=== PATIENT | male | born 1960 | race Caucasian/White ===

== ENCOUNTER 2022-12-17 15:44 | Emergency (ER) | payer OTHER, SELFPAY ==
[2022-12-17] VITALS (30 sets, daily range): BP systolic 116–154; BP diastolic 73–137; PULSE 74–99; RESP 16–35; TEMP 36.7; O2SAT 88–96; BMI 23.1
--- NOTE | 2022-12-17 16:06 | CT_ITS ---
EXAM: CT HEAD WITHOUT INTRAVENOUS CONTRAST CLINICAL INDICATION: Head injury TECHNIQUE: Multiple axial images were obtained of the head without intravenous contrast. This CT exam was performed using one or more of the following dose reduction techniques: automated exposure control, adjustment of the mA and/or kV according to patient size, and/or use of iterative reconstruction technique. This report was created using [employer] report generation technology. COMPARISON: None. FINDINGS: BRAIN AND EXTRA-AXIAL SPACES: Unremarkable. No intra- or extra-axial hemorrhage. No evidence of acute infarct. No intracranial mass or mass effect. There is preservation of the ortiz/white matter interface. Posterior fossa structures are unremarkable. Ventricles are appropriate for age. No hydrocephalus. Basal cisterns are patent. BONES/JOINTS: Unremarkable. No discrete lytic or blastic abnormalities. SOFT TISSUES: There is gas in the soft tissues and musculature over the posterior skull base. Calvarium is intact. SINUSES: Unremarkable as visualized. Clear. MASTOID AIR CELLS: Unremarkable. Clear. ORBITS: Visualized globes, extraocular muscles, optic nerves and retrobulbar fat appear unremarkable. CT/Brain/Head without Contrast IMPRESSION: 1. No acute intracranial abnormality. 2. Gas in the soft tissues and musculature posterior to the posterior fossa. Electronically Signed: Edd Carreon MD at 16:49 EST ,
[2022-12-17] MEDS: Morphine 4 MG/ML Syringe IV (16:21)
[2022-12-17] MEDS: 0.9% Normal Saline 1,000 ML 1000 ML IV (16:21)
--- NOTE | 2022-12-17 16:40 | RAD_ITS ---
EXAM: XR CHEST, 2 VIEWS CLINICAL INDICATION: Dyspnea TECHNIQUE: Frontal and lateral views of the chest. This report was created using [employer] report generation technology. COMPARISON: None. FINDINGS: LUNGS AND PLEURAL SPACES: Unremarkable. No consolidation or edema. No pneumothorax. No effusion. HEART: Unremarkable. Cardiac silhouette not enlarged. MEDIASTINUM: Central airways and mediastinal contour are unremarkable. BONES/JOINTS: Unremarkable. SOFT TISSUES: There is subcutaneous emphysema over the left neck. There is also subcutaneous emphysema over the lateral left lower chest. RAD/Chest PA and Lateral IMPRESSION: No acute pulmonary abnormality. There is subcutaneous emphysema over the left neck and left lower chest. If indicated further evaluation with CT scan of the chest may be beneficial. Electronically Signed: Edd Carreon MD at 16:53 EST ,
[2022-12-17 17:05] LABS: Absolute Lymphocyte Count 1.46 X10^3/uL (0.83-4.51); Basophil# 0.05 X10^3/uL; Basophil% 0.5 % (0-1); Eosinophil# 0.16 X10^3/uL; Eosinophils% 1.7 % (0-5); Hematocrit 42.5 % (40-54); Hemoglobin 14.2 g/dL (13.0-16.5); Lymphocyte # 1.46 X10^3/ul (0.83-4.51); Lymphocyte % 15.5 % (19-41); Mean Corp Hgb Conc 33.4 g/dL (32-36); Mean Corpuscular Hgb 31.5 pg (27.0-32.0); Mean Corpuscular Volume 94.2 fL (80-94); Mean Platelet Vol. 8.4 fl (6.2-12.0); Monocyte# 0.72 X10^3/uL; Monocyte% 7.7 % (0-10); NRBC Flagged by Analyzer 0 % (0-5); Neutrophil # 6.96 X10^3/uL (2.7-7.7); Platelet Count 204 K/mm3 (150-450); RBC Distribution Width CV 12.5 % (11.6-14.6); RBC Distribution Width SD 43.5 fl (35.1-43.9); Red Blood Count 4.51 M/mm3 (4.6-6.2); White Blood Count 9.4 K/mm3 (4.4-11.0)
--- NOTE | 2022-12-17 17:07 | CT_ITS ---
EXAM: CT CHEST, ABDOMEN AND PELVIS WITH INTRAVENOUS CONTRAST CLINICAL INDICATION: Abdominal pain TECHNIQUE: Helically acquired images were obtained of the chest, abdomen and pelvis with intravenous contrast. This CT exam was performed using one or more of the following dose reduction techniques: automated exposure control, adjustment of the mA and/or kV according to patient size, and/or use of iterative reconstruction technique. This report was created using [employer] report generation technology. CONTRAST: IV 100mL Isovue-300 COMPARISON: None. FINDINGS: CHEST: LUNGS AND PLEURAL SPACES: There is a small left apical pneumothorax present. There is also a small left anterior pneumothorax. No mass. No pleural effusion or thickening. HEART: Unremarkable. Heart size is normal. No pericardial effusion. No significant coronary artery calcifications. MEDIASTINUM: Unremarkable. No mediastinal or hilar adenopathy. Esophagus is unremarkable. No hiatal hernia. THYROID: Unremarkable. No thyroid lesions. ABDOMEN: LIVER: Unremarkable. Homogeneous. No focal mass. GALLBLADDER AND BILE DUCTS: There are surgical clips from cholecystectomy. No intra- or extrahepatic biliary ductal dilation. PANCREAS: Unremarkable. No focal cystic or solid mass. SPLEEN: Unremarkable. Normal size without focal cystic or solid mass. ADRENALS: Unremarkable. No nodules. KIDNEYS AND URETERS: Unremarkable. Normal renal size and position. No hydronephrosis. STOMACH AND BOWEL: There are fluid-filled loops of small bowel. No stomach or bowel distention. No focal inflammatory change. PELVIS: APPENDIX: No evidence of acute appendicitis. BLADDER: Unremarkable. REPRODUCTIVE: Unremarkable as visualized. No mass. CHEST, ABDOMEN and PELVIS: INTRAPERITONEAL SPACE: Unremarkable. No ascites or other fluid collection. No free air. BONES/JOINTS: There are fractures of the left eighth, ninth and 10th ribs posteriorly. No suspicious lytic or blastic abnormality. SOFT TISSUES: There is subcutaneous gas in the left neck and posterior to the left lower chest. No discrete abdominal or pelvic wall hernia. VASCULATURE: Unremarkable. Aorta is non-dilated. No aortic dissection. No obvious central pulmonary embolism although this study was not performed with the pulmonary embolism protocol. LYMPH NODES: Unremarkable. No enlarged lymph nodes. CT/CT Chest, Abd, Pel w/Contrast IMPRESSION: 1. Fractures of the left eighth, ninth and 10th ribs posteriorly. There is a small left apical and anterior pneumothorax. There is subcutaneous emphysema over the posterior left chest extending up into the left neck. 2. Fluid-filled loops of small bowel which may represent mild enteritis. There are no acute abnormalities in the abdomen or pelvis. Electronically Signed: Edd Carreon MD at 17:55 EST ,
[2022-12-17 17:21] LABS: Anion Gap 7 (5-15); BUN 26 mg/dL (7-18); BUN/Creat Ratio 23.4 RATIO (10-20); Calcium,Total 9.8 mg/dL (8.5-10.1); Chloride 109 mmol/L (98-107); Creatinine, Serum 1.11 mg/dL (0.70-1.30); EST Glomerular Filtration Rate 72 mL/min (>60); Est Glom Filt Rate - Afr Amer 87 mL/min (>60); Estimated Creatinine Clearance 85.01 ml/min; Glucose 123 mg/dL (74-106); Potassium 4.1 mmol/L (3.5-5.1); Sodium Level 141 mmol/L (136-145)
--- NOTE | 2022-12-17 17:23 | CT_ITS ---
EXAM: CT CERVICAL SPINE WITHOUT INTRAVENOUS CONTRAST CLINICAL INDICATION: Injury/Pain TECHNIQUE: Helically acquired images were obtained of the cervical spine without intravenous contrast. 2D reformatted images were reviewed. This CT exam was performed using one or more of the following dose reduction techniques: automated exposure control, adjustment of the mA and/or kV according to patient size, and/or use of iterative reconstruction technique. This report was created using [employer] report generation technology. CONTRAST: IV 100mL Isovue-300 COMPARISON: None. FINDINGS: VERTEBRAE: There is mild reversal the normal cervical lordosis. No fracture. No traumatic subluxation. No discrete lytic or blastic abnormality. Normal craniocervical junction and cervicothoracic junction. DISCS/SPINAL CANAL/NEURAL FORAMINA: There is disc space narrowing at C5-6. SOFT TISSUES: There is subcutaneous and soft tissue gas along the left posterior neck extending the posterior aspect of the inferior calvarium. No prevertebral soft tissue swelling. LYMPH NODES: Unremarkable. No cervical adenopathy. LUNG APICES: Unremarkable as visualized. Clear. CT/Spine Cervical without Contras IMPRESSION: 1. No acute osseous abnormalities of the cervical spine. 2. Mild reversal of the normal cervical lordosis which may be due to a muscular strain. There is disc space narrowing at C5-6. 3. Gas in the soft tissues along the left neck and posterior skull. Electronically Signed: Edd Carreon MD at 17:51 EST ,
[2022-12-17] MEDS: HYDROmorphone 1 MG/ML Syringe 0.5 MG IV (19:01)
--- NOTE | 2022-12-17 19:50 | ED.RN ---
REPORT CALL ATTEMPT MADE TO [facility]. THIS RN WAS ON HOLD FOR 10 MIN WITH NO ANSWER. ANOTHER ATTEMPT WILL BE MADE AT A LATER TIME.
--- NOTE | 2022-12-17 20:36 | ED.RN ---
REPORT CALLED TO [facility] ED AT THIS TIME.
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
== END 2022-12-17 20:39 | disposition short-term general hospital (02) ==
PROVIDERS: Emergency Provider Emergency Medicine; Visit Provider Emergency Medicine
DX: S27.0XXA Traumatic pneumothorax, initial encounter (principal); T79.7XXA Traumatic subcutaneous emphysema, initial encounter; S22.49XA Multiple fractures of ribs, unspecified side, initial encounter for closed fracture; F17.210 Nicotine dependence, cigarettes, uncomplicated; V48.5XXA Car driver injured in noncollision transport accident in traffic accident, initial encounter
CPT/HCPCS: 70450; 71046; 71260; 72125; 74177; 80048; 85025; 96361; 96374; 96375; 99285; J7030; Q9967; A4216